=== PATIENT | female | born 1990 | race Caucasian/White ===

== ENCOUNTER 2017-05-04 00:06 | Emergency (ER) | payer OTHER ==
[2017-05-04 01:16] VITALS: BP 112/52; PULSE 83; TEMP 98.7; BMI 28.3
[2017-05-04] MEDS ORDERED: FLUCONAZOLE 100 MG TABLET (UD) PO ONE (01:37)
[2017-05-04] MEDS ORDERED: CEPHALEXIN MONOHYDRATE 500 MG CAPSULE (UD) PO ONE (01:37)
[2017-05-04] MEDS ORDERED: FLUCONAZOLE 100 MG TABLET (UD) ONE (01:45)
[2017-05-04] MEDS ORDERED: CEPHALEXIN MONOHYDRATE 250 MG CAPSULE (FP) ONE (01:45)
--- NOTE | 2017-05-04 01:46 | PDOC ---
History of Present Illness - General Chief Complaint: Pain Stated Complaint: INJURY/LT TOE Time Seen by Provider: 05/04/17 01:18 History Source: Patient Exam Limitations: No Limitations - History of Present Illness Initial Comments: 05/04/17 01:39 26yo Female patient presents to ED c/o Lt foot greater toes nail injury. Patient states she banged her toe against a door a few days ago, while attending "summer jam" someone stepped on her toe causing the nail to lift off nailbed. Patient denies any other complaints at this time. Occurred: reports: yesterday Severity: Yes: moderate Lower Extremity Pain Location: left: 1st toe Method of Injury: Yes: other (See HPI) Modifying Factors: improves with: None Extremity Pain Location - Extremity Pain Location Extremity Pain Locations: left: 1st toe Past History - Travel Traveled outside of the country in the last 30 days: No Close contact w/someone who was outside of country & ill: No - Past Medical History Allergies/Adverse Reactions: Allergies Allergy/AdvReac Type Severity Reaction Status Date / Time No Known Allergies Allergy Verified 05/04/17 01:12 Home Medications: Ambulatory Orders Cephalexin Monohydrate [Keflex -] 500 mg PO BID #20 capsule 05/04/17 Fluconazole [Diflucan -] 300 mg PO WEEKLY #21 tablet 05/04/17 Suicide Attempt (Hx): No - Surgical History Abdominal Surgery: No - Immunization History Td Vaccination: No (-> update) Immunization Up to Date: Yes - Psycho/Social/Smoking Cessation Hx Anxiety: No Suicidal Ideation: No Smoking Status: No Smoking History: Never smoked Have you smoked in the past 12 months: No Number of Cigarettes Smoked Daily: 2 Information on smoking cessation initiated: No 'Breaking Loose' booklet given: 09/30/14 Hx Alcohol Use: No Drug/Substance Use Hx: No Substance Use Type: Alcohol, Marijuana Review of Systems - Review of Systems Able to Perform ROS?: Yes Is the patient limited Yemeni proficient: No Musculoskeletal: Yes: Other (Lt foot greater toe nail injury.) All Other Systems: Reviewed and Negative *Physical Exam - Vital Signs Last Vital Signs Temp Pulse Resp BP Pulse Ox 98.7 F 83 14 112/52 100 05/04/17 01:13 05/04/17 01:13 05/04/17 01:13 05/04/17 01:05/04/17 01:13 - Physical Exam General Appearance: Yes: Nourished, Appropriately Dressed, Mild Distress. No: Apparent Distress, Moderate Distress, Severe Distress Neck: positive: Trachea midline, Normal Thyroid, Supple. negative: Decreased range of motion, Stridor, Lymphadenopathy (R), Lymphadenopathy (L) Respiratory/Chest: positive: Lungs Clear, Normal Breath Sounds. negative: Chest Tender, Respiratory Distress, Accessory Muscle Use, Labored Respiration, Rapid RR Cardiovascular: positive: Regular Rhythm, Regular Rate Musculoskeletal: positive: Normal Inspection. negative: CVA Tenderness, Decreased Range of Motion, Muscle Spasm, Vertebral Tenderness Extremity: positive: Normal Capillary Refill, Normal Range of Motion, Inflammation. negative: Normal Inspection (Lt greater toe), Pedal Edema, Swelling, Calf Tenderness, Erythema Integumentary: positive: Normal Color, Dry, Warm. negative: Erythema, Rash, Swelling, Bruising Neurologic: positive: general supervisor II-XII NML intact, Fully Oriented, Alert, Normal Mood/ Affect, Normal Response, Motor Strength 5/5 *DC/Admit/Observation/Transfer Diagnosis at time of Disposition: Onychomycosis due to dermatophyte - Discharge Dispostion Disposition: HOME Condition at time of disposition: Stable Admit: No - Prescriptions Prescriptions: Fluconazole [Diflucan -] 300 mg PO WEEKLY #21 tablet Cephalexin Monohydrate [Keflex -] 500 mg PO BID #20 capsule - Patient Instructions Printed Discharge Instructions: DI for Onychomycosis Additional Instructions: Follow up with [facility]: [address] [place] [address] [id number], [facility] [id number] or [facility] . Print Language: IRAQI
== END 2017-05-04 01:58 | disposition home or self-care (01) ==
LOC: JER 00:06
DX: B35.1 Tinea unguium (principal); B35.9 Dermatophytosis, unspecified; W52.XXXA Crushed, pushed or stepped on by crowd or human stampede, initial encounter; Y93.89 Activity, other specified; Y92.89 Other specified places as the place of occurrence of the external cause
CPT/HCPCS: 99281-25

== ENCOUNTER 2018-01-15 20:47 | Emergency (ER) | payer SELFPAY ==
[2018-01-15 20:58] VITALS: BP 127/78; PULSE 76; TEMP 98.4; BMI 29.8
--- NOTE | 2018-01-15 21:22 | PDOC ---
History of Present Illness - General Chief Complaint: Toothache Stated Complaint: TOOTHACHE Time Seen by Provider: 01/15/18 21:22 Past History - Past Medical History Allergies/Adverse Reactions: Allergies Allergy/AdvReac Type Severity Reaction Status Date / Time No Known Allergies Allergy Verified 01/15/18 20:56 Home Medications: Ambulatory Orders Amoxicillin - [Amoxicillin 500mg Capsule -] 500 mg PO BID #14 capsule 01/15/18 Fluconazole [Diflucan] 150 mg PO ONCE #1 tablet 01/15/18 Ibuprofen 800 mg PO TID #30 tablet 01/15/18 Oxycodone HCl/Acetaminophen [Percocet 5-325 mg Tablet] 1 tab PO Q6H #10 tablet MDD 4 01/15/18 COPD: No Other medical history: Pt denies - Surgical History Abdominal Surgery: No - Immunization History Td Vaccination: No (-> update) Immunization Up to Date: Yes - Suicide/Smoking/Psychosocial Hx Smoking Status: No Smoking History: Never smoked Have you smoked in the past 12 months: Yes Number of Cigarettes Smoked Daily: 2 Information on smoking cessation initiated: No 'Breaking Loose' booklet given: 09/30/14 Hx Alcohol Use: No Drug/Substance Use Hx: No Substance Use Type: Alcohol, Marijuana *Physical Exam - Vital Signs Last Vital Signs Temp Pulse Resp BP Pulse Ox 98.4 F 76 20 127/78 99 01/15/18 20:56 01/15/18 20:56 01/15/18 20:56 01/15/18 20:56 01/15/18 20:56 *DC/Admit/Observation/Transfer Diagnosis at time of Disposition: Toothache - Discharge Dispostion Disposition: HOME Condition at time of disposition: Stable Admit: No - Referrals Referrals: Radha Shields [Primary Care Provider] - - Patient Instructions Printed Discharge Instructions: DI for Dental Pain Additional Instructions: You have a dental cavity which is most likely causing her pain. Please keep your appointment with her dentist for Wednesday. Your also prescribed amoxicillin. Please take this medication twice a day for the next 7 days to prevent further infection. You may take Percocet as needed for pain every [address] after taking this medication as it may make you sleepy. Return to the emergency department if you have worsening pain, fevers, sore throat, or any changes in your symptoms. - Post Discharge Activity
[2018-01-15] MEDS ORDERED: AMOXICILLIN 500 MG CAPSULE (FP) PO ONE (21:23)
[2018-01-15] MEDS ORDERED: IBUPROFEN 400 MG TABLET (FP) PO ONE ×2 (21:23→21:42)
[2018-01-15] MEDS ORDERED: AMOXICILLIN 250 MG CAPSULE ONE (21:42)
== END 2018-01-15 21:54 | disposition home or self-care (01) ==
LOC: JERFT 20:47
DX: K08.89 Other specified disorders of teeth and supporting structures (principal)
CPT/HCPCS: 84703; 99281-25

== ENCOUNTER 2021-04-23 14:48 | Emergency (ER) | payer OTHER ==
[2021-04-23 15:01] VITALS: BP 115/62; PULSE 96; TEMP 98.3; BMI 30.1
== END 2021-04-23 18:21 | disposition home or self-care (01) ==
LOC: JER 14:48
DX: R05 Cough (principal); Z11.52 Encounter for screening for COVID-19
CPT/HCPCS: 71046-TC-FY; 87804; 87880; 99284-25; C9803; U0003; U0005

== ENCOUNTER 2021-09-05 01:17 | Emergency (ER) | payer OTHER ==
[2021-09-05] MEDS ORDERED: ACETAMINOPHEN 325 MG TABLET (FP) PO ONE (02:01)
[2021-09-05 02:05] VITALS: BP 127/83; PULSE 97; TEMP 98.8; BMI 31.1
[2021-09-05] MEDS ORDERED: ACETAMINOPHEN 325 MG TABLET (FP) ONE (02:23)
== END 2021-09-05 03:17 | disposition home or self-care (01) ==
LOC: JER 01:17
DX: J06.9 Acute upper respiratory infection, unspecified (principal)
CPT/HCPCS: 87804; 99283-25; C9803; U0003; U0005

== ENCOUNTER 2023-11-20 12:01 | Emergency (ER) | payer OTHER ==
[2023-11-20 12:07] VITALS: BP 109/64; PULSE 67; RESP 18; TEMP 98.2; BMI 32.1
[2023-11-20] MEDS ORDERED: predniSONE 20 MG TABLET (UD) PO ONE (13:25)
[2023-11-20] MEDS ORDERED: ALBUTEROL SO4 2.5/IPRATROPIUM 0.5 INH SOL 3 ML VIAL.NEB. NEB ONE ×2 (13:25→13:49)
[2023-11-20] MEDS ORDERED: guaiFENesin/D-METHORPHAN HB 10 ML UNIT-DOSE CUPS PO ONE (13:25)
[2023-11-20] MEDS ORDERED: predniSONE 20 MG TABLET (UD) ONE ×2 (13:49→14:06)
[2023-11-20] MEDS ORDERED: guaiFENesin/D-METHORPHAN HB 10 ML UNIT-DOSE CUPS ONE (13:49)
== END 2023-11-20 15:16 | disposition home or self-care (01) ==
LOC: JERFT 12:01 → JER 12:01 → JERFT 15:16
PROC: 3E0F7GC Introduction of Other Therapeutic Substance into Respiratory Tract, Via Natural or Artificial Opening (ICD-10-PCS; principal; 2023-11-20)
DX: R05.9 Cough, unspecified (principal); R09.3 Abnormal sputum; J02.9 Acute pharyngitis, unspecified; H92.09 Otalgia, unspecified ear; R09.81 Nasal congestion; J40 Bronchitis, not specified as acute or chronic; Z20.822 Contact with and (suspected) exposure to COVID-19
CPT/HCPCS: 0241U-QW; 71046-TC-FY; 87651; 99284-25

== ENCOUNTER 2024-12-07 21:54 | Emergency (ER) | payer OTHER ==
[2024-12-07 21:59] VITALS: BP 121/69; PULSE 74; RESP 20; TEMP 97.7; BMI 31.1
[2024-12-07] MEDS ORDERED: ALBUTEROL SO4 HFA INHALER IH ONE (23:54)
[2024-12-07] MEDS: ALBUTEROL SO4 HFA INHALER IH ONE (23:56)
[2024-12-08] MEDS ORDERED: BACITRACIN ZINC 15 GM TUBE TOPICAL OINTMENT ONE (00:01)
[2024-12-08] MEDS: BACITRACIN ZINC 15 GM TUBE TOPICAL OINTMENT TP ONE (00:08)
== END 2024-12-08 00:09 | disposition home or self-care (01) ==
LOC: JERFT 21:54 → JER 21:54
DX: R05.9 Cough, unspecified (principal); L73.1 Pseudofolliculitis barbae; Z20.822 Contact with and (suspected) exposure to COVID-19
CPT/HCPCS: 0241U-QW; 71046-TC-FY; 99284-25